=== PATIENT | female | born 1955 | race African-American/Black ===

== ENCOUNTER 2016-04-29 14:17 | Inpatient (IN) | payer MEDICAID ==
[~2016-04-29] VITALS: Ht 157.5 cm; Wt 52.8 kg
[2016-04-29] MEDS ORDERED: humuLIN REG INSULIN ONE (15:23)
[2016-04-29] MEDS ORDERED: SODIUM CHLORIDE 0.9% 1,000 ML ONE ×2 (15:23→18:05)
[2016-04-29] MEDS ORDERED: DEXTROSE 50% SYRINGE 50 ML IV PRN (16:15)
[2016-04-29] MEDS ORDERED: INSULIN DRIP 1 UNIT/ML 100 ML IV SCH (16:15)
[2016-04-29] MEDS ORDERED: SODIUM CHLORIDE 0.9% 250 ML IV ONE (16:54)
[2016-04-29 20:32] VITALS: BP_SYST 155; RESP 18; TEMP 98.3
[2016-04-29 20:36] VITALS: BMI 21.3
[2016-04-29] MEDS ORDERED: MAG HYDROX 30 ML UDC PO PRN (21:05)
[2016-04-29] MEDS ORDERED: SALINE FLUSH 10 ML FLUSH PRN (21:05)
[2016-04-29] MEDS ORDERED: NICOTINE 21 MG/24 HR TRANSDERM PRN (21:05)
[2016-04-29] MEDS ORDERED: BISACODYL 10 MG SUPP RECTAL PRN (21:05)
[2016-04-29] MEDS ORDERED: ALU/MAG/SIM 30 ML UDC PO PRN (21:05)
[2016-04-29] MEDS ORDERED: ACETAMINOPHEN 325 MG TAB PO PRN (21:05)
[2016-04-29] MEDS ORDERED: ONDANSETRON 4 MG VIAL IV PRN (21:05)
[2016-04-29 21:47] VITALS: RESP 18
[2016-04-29] MEDS: Atorvastatin 40 MG TAB PO SCH (22:41)
[2016-04-29] MEDS: GABAPENTIN 600 MG TAB PO SCH (22:41)
[2016-04-29 23:09] VITALS: BP_SYST 155; RESP 18; TEMP 98.4
[2016-04-29] MEDS: DUONEB INH SCH (23:35)
[2016-04-30] VITALS (15 sets, daily range): BP systolic 140–177; RESP 16–20; TEMP 97.5–98.9; Ht 157.5 cm; Wt 52.8 kg
[2016-04-30] MEDS: DUONEB INH SCH ×6 (03:00→23:19)
[2016-04-30] MEDS: SODIUM CHLORIDE 0.9% FLUSH BAG 500 ML IV SCH (05:03)
[2016-04-30] MEDS: PANTOPRAZOLE 40 MG TAB PO SCH (06:26)
[2016-04-30] MEDS ORDERED: LEVEMIR INSULIN SUBQ SCH (08:00)
[2016-04-30] MEDS: LEVEMIR INSULIN SUBQ SCH ×2 (08:32→17:17)
[2016-04-30] MEDS: FERROUS GLUC 324 MG TAB PO SCH ×2 (08:33→20:47)
[2016-04-30] MEDS: SALINE FLUSH 10 ML FLUSH SCH ×2 (08:33→20:00)
[2016-04-30] MEDS: GABAPENTIN 600 MG TAB PO SCH ×3 (08:33→20:47)
[2016-04-30] MEDS: LISINOPRIL 10 MG TAB PO SCH (08:33)
[2016-04-30] MEDS: amLODIPine 10 MG TAB PO SCH (08:33)
[2016-04-30] MEDS: ENOXAPARIN 40 MG/0.4 ML SYR SUBQ SCH (08:34)
[2016-04-30] MEDS ORDERED: MISSING DOSE XX ONE (20:10)
[2016-04-30] MEDS: Atorvastatin 40 MG TAB PO SCH (20:47)
[2016-04-30] MEDS ORDERED: METOPROLOL TART 25 MG TAB PO SCH (21:00)
[2016-04-30] MEDS ORDERED: BACLOFEN 10 MG TAB PO PRN (23:00)
[2016-05-01] VITALS (7 sets, daily range): BP systolic 132–184; RESP 16–20; TEMP 97.8–99.2
[2016-05-01] MEDS: DUONEB INH SCH ×4 (02:29→14:17)
[2016-05-01] MEDS: SODIUM CHLORIDE 0.9% FLUSH BAG 500 ML IV SCH (04:33)
[2016-05-01] MEDS: PANTOPRAZOLE 40 MG TAB PO SCH (06:15)
[2016-05-01] MEDS: SALINE FLUSH 10 ML FLUSH SCH (08:00)
[2016-05-01] MEDS: ENOXAPARIN 40 MG/0.4 ML SYR SUBQ SCH (08:56)
[2016-05-01] MEDS: FERROUS GLUC 324 MG TAB PO SCH (08:57)
[2016-05-01] MEDS: amLODIPine 10 MG TAB PO SCH (08:57)
[2016-05-01] MEDS: LISINOPRIL 10 MG TAB PO SCH (08:57)
[2016-05-01] MEDS: GABAPENTIN 600 MG TAB PO SCH ×2 (08:58→16:26)
[2016-05-01] MEDS ORDERED: METOPROLOL TART 25 MG TAB PO SCH (09:00)
[2016-05-01] MEDS ORDERED: LEVEMIR INSULIN SUBQ SCH (09:00)
[2016-05-01] MEDS ORDERED: cloNIDine 0.2 MG TAB PO ONE (11:03)
[2016-05-01] MEDS ORDERED: MISSING DOSE XX ONE (15:50)
[2016-05-01] MEDS ORDERED: cloNIDine 0.2 MG TAB PO SCH (21:00)
[2016-05-06] MEDS ORDERED: ERGOCALCIFEROL 50,000 UNITS (1.25 MG) CAP PO SCH (09:00)
== END 2016-05-01 18:32 | disposition home or self-care (01) | DRG 812 ==
LOC: ENRESERVTM → ENRESERVDT → ER 14:17 → ENPENDDIS 18:51 → EMR 18:51 → PCU2 20:14 → 4THE 04-30 00:57
PROVIDERS: ADMIT Family Medicine; ATTEND Family Medicine
DX: D64.9 Anemia, unspecified (principal); E11.22 Type 2 diabetes mellitus with diabetic chronic kidney disease; E11.42 Type 2 diabetes mellitus with diabetic polyneuropathy; E11.65 Type 2 diabetes mellitus with hyperglycemia; I12.9 Hypertensive chronic kidney disease with stage 1 through stage 4 chronic kidney disease, or unspecified chronic kidney disease; N18.3 Chronic kidney disease, stage 3 (moderate); E78.5 Hyperlipidemia, unspecified; F50.89 Other specified eating disorder; Z68.21 Body mass index [BMI] 21.0-21.9, adult; Z79.4 Long term (current) use of insulin; Z72.0 Tobacco use
CPT/HCPCS: 36415; 36430; 36600; 80048; 80053; 81001; 82009; 82140; 82274; 82553; 82803; 82947; 83540; 83735; 84443; 84466; 84484; 84630; 84681; 85025; 86850; 86900; 86901; 86923; 93005; 94640; 94799; 96361; 96365; 96366; 96375; 99222; 99232; 99238